=== PATIENT | female | born 1970 ===

== ENCOUNTER 2018-01-06 11:34 | Emergency (ER) | payer OTHER, SELFPAY ==
[2018-01-06 11:34] VITALS: BMI 22.3
[2018-01-06 11:51] VITALS: RESP 18; O2SAT 100
--- NOTE | 2018-01-06 12:04 | C.PDOC ---
History Of Present Illness 47 y/o female presents to the ER complaining of hip pain which has been present for the past 3 days. Patient states that the pain radiates to her left leg. Patient reports that the pain is worse with movement. 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 Patient denies having fever, chills , nausea, vomiting, diarrhea, dysuria, and hematuria. Time Seen by Provider: 01/06/18 11:54 Chief Complaint (Nursing): Back Pain History Per: Patient History/Exam Limitations: no limitations Onset/Duration Of Symptoms: Days Current Symptoms Are (Timing): Still Present Severity: Moderate Past Medical History Reviewed: Historical Data, Nursing Documentation, Vital Signs Vital Signs: Last Vital Signs Temp 97.6 F 01/06/18 11:47 Pulse 72 01/06/18 11:47 Resp 18 01/06/18 11:47 BP 137/82 01/06/18 11:47 Pulse Ox 100 01/06/18 13:29 - Medical History PMH: No Chronic Diseases Surgical History: No Surg Hx Family History: States: No Known Family Hx - Social History Hx Tobacco Use: No Hx Alcohol Use: No Hx Substance Use: No - Immunization History Hx Tetanus Toxoid Vaccination: No Hx Influenza Vaccination: No Hx Pneumococcal Vaccination: No Review Of Systems Except As Marked, All Systems Reviewed And Found Negative. Constitutional: Negative for: Fever, Chills Gastrointestinal: Negative for: Nausea, Vomiting, Diarrhea Genitourinary: Negative for: Dysuria, Hematuria Musculoskeletal: Positive for: Back Pain (lower back pain) Physical Exam - Physical Exam Appears: Non-toxic, No Acute Distress Skin: Normal Color, Warm Head: Atraumatic, Normacephalic Eye(s): bilateral: Normal Inspection Nose: Normal Oral Mucosa: Moist Neck: Supple Chest: Symmetrical Gastrointestinal/Abdominal: Normal Exam, Soft, No Tenderness Extremity: Tenderness (tenderness to the left hip and left posterior thigh) Neurological/Psych: Oriented x3, Normal Speech, Normal Motor, Normal Sensation ED Course And Treatment O2 Sat by Pulse Oximetry: 100 (RA) Pulse Ox Interpretation: Normal Medical Decision Making Medical Decision Making: Plan: --Flexeril PO --Motrin PO --Tylenol PO --Lidoderm Patch Patient is pain free Disposition Counseled Patient/Family Regarding: Diagnosis, Need For Followup, Rx Given - Disposition Referrals: Douglas Gale MD [Staff Provider] - Jose Crowley MD [Non-Staff] - Disposition: HOME/ ROUTINE Disposition Time: 15:21 Condition: STABLE Prescriptions: Cyclobenzaprine [Cyclobenzaprine HCl] 10 mg PO TID #12 tab Ibuprofen [Motrin] 600 mg PO TID #15 tab Instructions: Sciatica Forms: [facility] (Malay), Work Excuse - POA Present On Arrival: None - Clinical Impression Clinical Impression: Sciatica - Scribe Statement The provider has reviewed the documentation as recorded by the Kenneth Garcia Provider Attestation: All medical record entries made by the Sofieibaggie were at my direction and personally dictated by me. I have reviewed the chart and agree that the record accurately reflects my personal performance of the history, physical exam, medical decision making, and the department course for this patient. I have also personally directed, reviewed, and agree with the discharge instructions and disposition.
[2018-01-06] MEDS ORDERED: Lidocaine 5% Patch TD STA (12:05)
[2018-01-06 15:27] VITALS: BP 118/81; PULSE 70; TEMP 97.9
== END 2018-01-06 15:36 | disposition home or self-care (01) ==
LOC: C.ER 11:34
DX: M54.32 Sciatica, left side (principal)

== ENCOUNTER 2018-01-08 08:04 | Emergency (ER) | payer OTHER ==
[2018-01-08 08:22] VITALS: BMI 21.2
[2018-01-08 08:24] VITALS: O2SAT 100
[2018-01-08] MEDS ORDERED: Lidocaine 5% Patch TD STA (08:47)
[2018-01-08] MEDS ORDERED: Oxycodone/Acetaminophen 5/325 mg Tab PO STA (08:47)
[2018-01-08] MEDS ORDERED: Oxycodone/Acetaminophen 5/325 mg Tab ONE (09:01)
[2018-01-08] MEDS ORDERED: Lidocaine 5% Patch TD ONE (09:01)
--- NOTE | 2018-01-08 09:16 | RAD ---
PROCEDURE: Radiographs of the Lumbar Spine. HISTORY: back pain, left sciatica COMPARISON: CT scan of the abdomen and pelvis dated 07/03/2015. FINDINGS: BONES: Normal alignment. No listhesis. No fracture. DISC SPACES: Unremarkable. OTHER FINDINGS: None. IMPRESSION: Unremarkable radiographs of the lumbar spine.
--- NOTE | 2018-01-08 10:56 | C.PDOC ---
History Of Present Illness 47 year old female presents to the emergency department with a complaint of severe lower back pain that radiates to the legs bilaterally (left greater than right) x 1 week. 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 Denies any further medical complaints. Time Seen by Provider: 01/08/18 08:25 Chief Complaint (Nursing): Back Pain History Per: Patient History/Exam Limitations: no limitations Onset/Duration Of Symptoms: Days Past Medical History Reviewed: Historical Data, Nursing Documentation, Vital Signs Vital Signs: Last Vital Signs Temp 98.0 F 01/08/18 11:22 Pulse 72 01/08/18 11:22 Resp 16 01/08/18 11:22 BP 114/77 01/08/18 11:22 Pulse Ox 100 01/08/18 11:44 - Medical History PMH: No Chronic Diseases Family History: States: Unknown Family Hx - Social History Hx Tobacco Use: No Hx Alcohol Use: No Hx Substance Use: No - Immunization History Hx Tetanus Toxoid Vaccination: No Hx Influenza Vaccination: No Hx Pneumococcal Vaccination: No Review Of Systems Except As Marked, All Systems Reviewed And Found Negative. (As per HPI, otherwise negative) Musculoskeletal: Positive for: Back Pain (Lower), Leg Pain (b/l) Physical Exam - Physical Exam Appears: Non-toxic, Toxic, In Acute Distress (Uncomfortable) Skin: Normal Color, Warm, Dry Head: Atraumatic, Normacephalic Tongue: Normal Appearing Lips: Normal Appearing Teeth: Normal Dentition Gingiva: Normal Appearing Cardiovascular: Rhythm Regular, No Murmur Respiratory: Normal Breath Sounds, No Decreased Breath Sounds, No Accessory Muscle Use Gastrointestinal/Abdominal: Normal Exam, Soft, No Tenderness Back: Paraspinal Tenderness (Left region), Other (Left buttock posterior thigh) Extremity: Normal ROM, No Pedal Edema Neurological/Psych: Oriented x3 Gait: Steady ED Course And Treatment O2 Sat by Pulse Oximetry: 100 (RA) Pulse Ox Interpretation: Normal Reassessment Condition: Improved (ambulatory, no neuro deficit) Medical Decision Making Medical Decision Making: Time: 846 --Lidoderm 1 ea TD --Neurontin 300 mg PO --Perocet 5/325 mg PO --Toradol 60 mg IM --Valium 5 mg PO --Reassessment Time: 913 --Lumbar Spine x-ray FINDINGS: BONES: Normal alignment. No listhesis. No fracture. DISC SPACES: Unremarkable. OTHER FINDINGS: None. IMPRESSION: Unremarkable radiographs of the lumbar spine. Disposition - Disposition Referrals: Eliz Hdz MD [Staff Provider] - Disposition: HOME/ ROUTINE Disposition Time: 11:41 Condition: IMPROVED Additional Instructions: Follow up with PMD/Clinic within 1-2 days. Return to ED if feel worse. Prescriptions: Ibuprofen [Motrin Tab] 400 mg PO Q8 #30 tab Gabapentin [Neurontin] 600 mg PO QPM #10 tablet oxyCODONE/Acetaminophen [Percocet 5/325 mg Tab] 1 tab PO QID PRN #20 tab PRN Reason: Pain diaZEpam [Valium] 2 mg PO TID #15 tab Instructions: Sciatica Forms: [facility] (Nepali), Work Excuse - Clinical Impression Clinical Impression: Sciatica
[2018-01-08 11:23] VITALS: BP 114/77; PULSE 72; RESP 16; TEMP 98
== END 2018-01-08 12:00 | disposition home or self-care (01) ==
LOC: C.ER 08:04
DX: M54.30 Sciatica, unspecified side (principal)
CPT/HCPCS: 72100; 96372; 99284; J1885

== ENCOUNTER 2018-02-08 15:56 | Observation (INO) | payer OTHER ==
[2018-02-08 15:57] VITALS: BMI 21.2
--- NOTE | 2018-02-08 16:35 | C.PDOC ---
Time Seen by Provider: 02/08/18 16:29 Chief Complaint (Nursing): Back Pain Past Medical History Vital Signs: Last Vital Signs Temp 98.1 F 02/08/18 16:09 Pulse 76 02/08/18 16:09 Resp 18 02/08/18 16:09 BP 138/89 02/08/18 16:09 Pulse Ox 100 02/08/18 16:09 Family History: States: Unknown Family Hx - Social History Hx Tobacco Use: No Hx Alcohol Use: No Hx Substance Use: No - Immunization History Hx Tetanus Toxoid Vaccination: No Hx Influenza Vaccination: No Hx Pneumococcal Vaccination: No ED Course And Treatment O2 Sat by Pulse Oximetry: 100 Disposition - Disposition
--- NOTE | 2018-02-08 16:37 | C.PDOC ---
History Of Present Illness 47yo female, presents to ED for evaluation of left lower back pain radiating to her left leg, present for the past month. Patient states she was evaluated by her PCP Dr. Elly Hdz 2-3 weeks ago, given Motrin 600mg for pain, which she took with transient relief. Patient states went back yesterday, after which she had a flare up of her pain. She took 1 tablet of tylenol last night with no relief of pain. She denies any injury, perirectal pain, trauma, weakness, numbness, bowel or bladder dysfunction, saddle anesthesia. H/o MRI 2 years ago. Time Seen by Provider: 02/08/18 16:29 Chief Complaint (Nursing): Back Pain History Per: Patient History/Exam Limitations: no limitations Onset/Duration Of Symptoms: Persistent Current Symptoms Are (Timing): Still Present Quality Of Discomfort: "Pain" Associated Symptoms: denies: Incontinence, New Weakness, New Numbness Exacerbating Factor(s): Sitting, Standing Past Medical History Reviewed: Historical Data, Nursing Documentation, Vital Signs Vital Signs: Last Vital Signs Temp 97.8 F 02/09/18 07:48 Pulse 78 02/09/18 07:48 Resp 20 02/09/18 07:48 BP 127/84 02/09/18 07:48 Pulse Ox 100 02/09/18 09:14 Surgical History: No Surg Hx Family History: States: Unknown Family Hx - Social History Hx Tobacco Use: No Hx Alcohol Use: No Hx Substance Use: No - Immunization History Hx Tetanus Toxoid Vaccination: No Hx Influenza Vaccination: No Hx Pneumococcal Vaccination: No Review Of Systems Except As Marked, All Systems Reviewed And Found Negative. Genitourinary: Negative for: Incontinence Musculoskeletal: Positive for: Back Pain Neurological: Negative for: Weakness, Numbness Physical Exam - Physical Exam Appears: Well, Non-toxic, In Acute Distress (in painful distressed) Skin: Normal Color, Warm, Dry Head: Atraumatic, Normacephalic Eye(s): bilateral: EOMI Nose: Normal Oral Mucosa: Moist Neck: Normal ROM, Supple Chest: Symmetrical Cardiovascular: Rhythm Regular Respiratory: Normal Breath Sounds, No Accessory Muscle Use Gastrointestinal/Abdominal: Soft, No Tenderness Back: No CVA Tenderness, No Vertebral Tenderness, Paraspinal Tenderness (left buttock tenderness radiating to left posterior leg), Straight Leg Raising ( unable to assess secondary to pain) Extremity: Normal ROM, Capillary Refill, No Deformity, No Swelling Neurological/Psych: Oriented x3, Normal Motor, Normal Sensation ED Course And Treatment - Laboratory Results Result Diagrams: 02/08/18 18:34 02/08/18 18:34 O2 Sat by Pulse Oximetry: 100 (RA) Pulse Ox Interpretation: Normal Progress Note: Patient given Toradol 30mg IVP and Valium 5mg PO for pain relief. 1815: On re-evaluation, patient reports the pain has improved. Case discussed with Dr. Elly Hdz who agreed upon plan for admission. Reevaluation Time: 18:16 Reassessment Condition: Improved Disposition - Disposition Disposition: HOSPITALIZED Disposition Time: 20:00 Condition: STABLE - Clinical Impression Clinical Impression: Sciatica, Intractable back pain - PA / HEEL STIFFENER / Resident Statement MD/DO has reviewed & agrees with the documentation as recorded. - Scribe Statement The provider has reviewed the documentation as recorded by the Scribe (Deb Silverman) Provider Attestation: All medical record entries made by the Scribe were at my direction and personally dictated by me. I have reviewed the chart and agree that the record accurately reflects my personal performance of the history, physical exam, medical decision making, and the department course for this patient. I have also personally directed, reviewed, and agree with the discharge instructions and disposition.
[2018-02-08 18:38] LABS: BASO % 0.5 % (0.0-2.0); EOS # 0.1 K/uL (0.0-0.7); HEMOGLOBIN 12.2 g/dL (11.0-16.0); LYMPH # 1.8 K/uL (1.0-4.3); LYMPH % 21.6 % (20.0-40.0); MEAN CELL VOLUME 86.9 fL (81.0-99.0); MEAN CORPUSCULAR HEMOGLOBIN 28.7 pg (27.0-31.0); MONO # 0.6 K/uL (0.0-0.8); MONO % 7.7 % (0.0-10.0); NEUT # 5.7 K/uL (1.8-7.0); NEUT % 69.2 % (50.0-75.0); RBC 4.24 Mil/uL (3.80-5.20); RED CELL DISTRIBUTION WIDTH 13.5 % (11.5-14.5); WHITE BLOOD COUNT 8.2 K/uL (4.8-10.8)
[2018-02-08 18:51] LABS: ALB/GLOB RATIO 1.2 (1.0-2.1); ALBUMIN 4.1 g/dL (3.5-5.0); ALT/SGPT 54 U/L (9-52); AST/SGOT 35 U/L (14-36); BLOOD UREA NITROGEN 7 mg/dL (7-17); CALCIUM 8.7 mg/dl (8.6-10.4); GFR AFRICAN-AMERICAN > 60; GFR NON-AFRICAN AMERICAN > 60
[2018-02-08 18:54] LABS: HCG,QUALITATIVE URINE NEGATIVE (NEGATIVE)
[2018-02-08] MEDS: Sodium Chloride 0.9% 1,000 ML IV SCH (19:00)
[2018-02-08 19:01] LABS: SQUAMOUS EPITHIAL 3 /hpf (0-5); URINE BACTERIA RARE (<OCC); URINE BILIRUBIN NEGATIVE (NEGATIVE); URINE BLOOD NEGATIVE (NEGATIVE); URINE CLARITY Clear (Clear); URINE COLOR Colorless (YELLOW); URINE GLUCOSE (UA) NORMAL (Normal); URINE LEUKOCYTE ESTERASE NEG Leu/uL (Negative); URINE PROTEIN NEGATIVE (NEGATIVE); URINE UROBILINOGEN NORMAL mg/dL (0.2-1.0)
--- NOTE | 2018-02-08 21:46 | CP.PCM.HP ---
Past Patient History - Infectious Disease Hx of Infectious Diseases: None - Past Social History Smoking Status: Never Smoked - GASTROINTESTINAL Hx Constipation: Yes Hx Hemorrhoids: Yes - PSYCHIATRIC Hx Substance Use: No - SURGICAL HISTORY Hx Surgeries: No - ANESTHESIA Hx Anesthesia: No Meds Allergies/Adverse Reactions: Allergies Allergy/AdvReac Type Severity Reaction Status Date / Time No Known Allergies Allergy Verified 01/08/18 08:20 Physical Exam - Constitutional Appears: Well - Head Exam Head Exam: ATRAUMATIC, NORMAL INSPECTION, NORMOCEPHALIC - Eye Exam Eye Exam: EOMI, Normal appearance, PERRL Pupil Exam: NORMAL ACCOMODATION, PERRL - ENT Exam ENT Exam: Mucous Membranes Moist, Normal Exam - Neck Exam Neck exam: Positive for: Normal Inspection - Respiratory Exam Respiratory Exam: Decreased Breath Sounds - Cardiovascular Exam Cardiovascular Exam: REGULAR RHYTHM, +S1, +S2 - GI/Abdominal Exam GI & Abdominal Exam: Diminished Bowel Sounds, Soft - Rectal Exam Rectal Exam: Deferred Results - Vital Signs Recent Vital Signs: Last Vital Signs Temp 98.1 F 02/08/18 19:33 Pulse 81 02/08/18 19:33 Resp 18 02/08/18 19:33 BP 122/79 02/08/18 19:33 Pulse Ox 100 02/08/18 19:33 - Labs Result Diagrams: 02/08/18 18:34 02/08/18 18:34 Labs: Laboratory Results - last 24 hr 02/08/18 02/08/18 02/08/18 18:34 18:34 18:42 WBC 8.2 D RBC 4.24 Hgb 12.2 Hct 36.9 MCV 86.9 MCH 28.7 MCHC 33.0 RDW 13.5 Plt Count 237 MPV 9.0 Neut % (Auto) 69.2 Lymph % (Auto) 21.6 [place] % (Auto) 7.7 Eos % (Auto) 1.0 Baso % (Auto) 0.5 Neut # (Auto) 5.7 Lymph # (Auto) 1.8 [place] # (Auto) 0.6 Eos # (Auto) 0.1 Baso # (Auto) 0.0 Sodium 145 Potassium 4.1 Chloride 106 Carbon Dioxide 24 Anion Gap 19 BUN 7 Creatinine 0.7 Est GFR ( Amer) > 60 Est GFR (Non-Af Amer) > 60 Random Glucose 89 Calcium 8.7 Total Bilirubin 0.7 AST 35 ALT 54 H D Alkaline Phosphatase 72 Total Protein 7.5 Albumin 4.1 Globulin 3.4 Albumin/Globulin Ratio 1.2 Urine Color Colorless Urine Clarity Clear Urine pH 6.0 Ur Specific [place] 1.004 Urine Protein Negative Urine Glucose (UA) Normal Urine Ketones Negative Urine Blood Negative Urine Nitrate Negative Urine Bilirubin Negative Urine Urobilinogen Normal Ur Leukocyte Esterase Neg Urine WBC (Auto) 1 Urine RBC (Auto) 1 Ur Squamous Epith Cells 3 Urine Bacteria Rare Urine HCG, Qual Negative
[2018-02-08 22:41] VITALS: RESP 20
[2018-02-09] MEDS: Sodium Chloride 0.9% 1,000 ML IV SCH ×3 (04:19→17:21)
--- NOTE | 2018-02-09 07:18 | CP.PCM.CON ---
History of Present Illness - History of Present Illness History of Present Illness: CONSULT DICTATED LEFT L/S RADICULOPATHY EXAM SLR 30 DEG NON FOCAL EXAM CHECM MRI/BLOOD WORK UP NSAID AND MUS RELAX. IF MRI NEG DC HOME AND FOLLOW UP AN OP THANKS Past Patient History - Infectious Disease Hx of Infectious Diseases: None - Past Social History Smoking Status: Never Smoked - GASTROINTESTINAL Hx Constipation: Yes Hx Hemorrhoids: Yes - PSYCHIATRIC Hx Substance Use: No - SURGICAL HISTORY Hx Surgeries: No - ANESTHESIA Hx Anesthesia: No Meds Allergies/Adverse Reactions: Allergies Allergy/AdvReac Type Severity Reaction Status Date / Time No Known Allergies Allergy Verified 01/08/18 08:20 - Medications Medications: Current Medications Cyclobenzaprine HCl (Flexeril) 5 mg PO TID [facility] Enoxaparin Sodium (Lovenox) 40 mg SC DAILY [facility] Sodium Chloride (Sodium Chloride 0.9%) 1,000 mls @ 100 mls/hr IV .Q10H [facility] Last Admin: 02/09/18 05:30 Dose: 100 mls/hr Ketorolac Tromethamine (Toradol) 30 mg IVP Q6 [facility] Last Admin: 02/09/18 05:29 Dose: 30 mg Pantoprazole Sodium (Protonix Ec Tab) 40 mg PO DAILY [facility] Results - Vital Signs Recent Vital Signs: Last Vital Signs Temp 97.9 F 02/09/18 00:00 Pulse 76 02/09/18 00:00 Resp 20 02/09/18 00:00 BP 130/83 02/09/18 00:00 Pulse Ox 99 02/09/18 00:00 - Labs Result Diagrams: 02/08/18 18:34 02/08/18 18:34 Labs: Laboratory Results - last 24 hr 02/08/18 02/08/18 02/08/18 18:34 18:34 18:42 WBC 8.2 D RBC 4.24 Hgb 12.2 Hct 36.9 MCV 86.9 MCH 28.7 MCHC 33.0 RDW 13.5 Plt Count 237 MPV 9.0 Neut % (Auto) 69.2 Lymph % (Auto) 21.6 [place] % (Auto) 7.7 Eos % (Auto) 1.0 Baso % (Auto) 0.5 Neut # (Auto) 5.7 Lymph # (Auto) 1.8 [place] # (Auto) 0.6 Eos # (Auto) 0.1 Baso # (Auto) 0.0 Sodium 145 Potassium 4.1 Chloride 106 Carbon Dioxide 24 Anion Gap 19 BUN 7 Creatinine 0.7 Est GFR ( Amer) > 60 Est GFR (Non-Af Amer) > 60 Random Glucose 89 Calcium 8.7 Total Bilirubin 0.7 AST 35 ALT 54 H D Alkaline Phosphatase 72 Total Protein 7.5 Albumin 4.1 Globulin 3.4 Albumin/Globulin Ratio 1.2 Urine Color Colorless Urine Clarity Clear Urine pH 6.0 Ur Specific [place] 1.004 Urine Protein Negative Urine Glucose (UA) Normal Urine Ketones Negative Urine Blood Negative Urine Nitrate Negative Urine Bilirubin Negative Urine Urobilinogen Normal Ur Leukocyte Esterase Neg Urine WBC (Auto) 1 Urine RBC (Auto) 1 Ur Squamous Epith Cells 3 Urine Bacteria Rare Urine HCG, Qual Negative
[2018-02-09 07:51] VITALS: O2SAT 100
[2018-02-09 08:19] LABS: FREE T4 1.19 ng/dL (0.78-2.19)
--- NOTE | 2018-02-09 09:38 | CP.PCM.PN ---
Subjective - Date & Time of Evaluation Date of Evaluation: 02/09/18 Time of Evaluation: 08:40 - Subjective Subjective: clinically same Objective - Vital Signs/Intake and Output Vital Signs (last 24 hours): Temp Pulse Resp BP Pulse Ox 97.8 F 78 20 127/84 100 02/09/18 07:48 02/09/18 07:48 02/09/18 07:48 02/09/18 07:48 02/09/18 09:14 Intake and Output: 02/09/18 02/09/18 06:59 18:59 Intake Total 200 Balance 200 - Medications Medications: Current Medications Cyclobenzaprine HCl (Flexeril) 5 mg PO TID [facility] Enoxaparin Sodium (Lovenox) 40 mg SC DAILY [facility] Sodium Chloride (Sodium Chloride 0.9%) 1,000 mls @ 100 mls/hr IV .Q10H [facility] Last Admin: 02/09/18 05:30 Dose: 100 mls/hr Ketorolac Tromethamine (Toradol) 30 mg IVP Q6 [facility] Last Admin: 02/09/18 05:29 Dose: 30 mg Pantoprazole Sodium (Protonix Ec Tab) 40 mg PO DAILY [facility] - Labs Labs: 02/08/18 18:34 02/08/18 18:34 - Constitutional Appears: Well - Head Exam Head Exam: ATRAUMATIC, NORMAL INSPECTION, NORMOCEPHALIC - Eye Exam Eye Exam: EOMI, Normal appearance, PERRL Pupil Exam: NORMAL ACCOMODATION, PERRL - ENT Exam ENT Exam: Mucous Membranes Moist, Normal Exam - Neck Exam Neck Exam: Full ROM, Normal Inspection. absent: Lymphadenopathy - Respiratory Exam Respiratory Exam: Decreased Breath Sounds - Cardiovascular Exam Cardiovascular Exam: REGULAR RHYTHM, +S2 - GI/Abdominal Exam GI & Abdominal Exam: Soft, Diminished Bowel Sounds - Rectal Exam Rectal Exam: Deferred
[2018-02-09] MEDS ORDERED: Pantoprazole 40 mg EC Tab PO SCH (10:00)
[2018-02-09] MEDS ORDERED: Enoxaparin 40 mg Syringe SC SCH (10:00)
--- NOTE | 2018-02-09 10:04 | MRI ---
MRI lumbar spine History: Herniated disc. Back pain. Comparison: None available. Technique: Multi-echo multiplanar sequences were performed through the lumbar spine without the use of intravenous contrast. Findings: Spinal alignment is maintained. Vertebral body heights are preserved. Focal disc desiccation at the L2-3 and L5-S1 levels. Schmorl's node formation at the inferior endplates of the L2 and L5 vertebral bodies. Annular tears at the L2-3 and L5-S1 levels. Conus medullaris ends at approximately the T12 vertebral body level. Heterogeneity of the visualized marrow with patchy decreased T1 signal suggestive for hematopoietic marrow reconversion. T11-12: No significant disc herniation, spinal canal stenosis, or neural foraminal narrowing. T12-L1: No significant disc herniation, spinal canal stenosis, or neural foraminal narrowing. L1-2: No significant disc herniation, spinal canal stenosis, or neural foraminal narrowing. L2-3: Small annular tear. Minimal broad-based posterior disc bulge contacting the anterior thecal sac. Moderate ligamentum flavum and facet hypertrophy. No significant spinal canal stenosis. No significant neural foraminal narrowing. L3-4: No significant disc herniation. Mild ligamentum flavum and facet hypertrophy. No significant spinal canal stenosis. No significant neural foraminal narrowing. L4-5: No significant disc herniation. Mild ligamentum flavum and facet hypertrophy. No significant spinal canal stenosis. No significant neural foraminal narrowing. L5-S1: Annular tear. At the posterior superior aspect of the S1 vertebral body, there is a large ovoid low signal density measuring 1.4 x 1.0 x 1.0 centimeters, best seen on series 8, image 21 and series 6, image 7 seen within the anterior thecal sac abutting and contacting the anterior thecal nerve roots. This appears to be contiguous with the posterior aspect of the L5-S1 disc, where there appears to be a moderate focal right paracentral disc protrusion. This may represent a large focal disc extrusion/sequestration with resultant severe spinal canal stenosis. Moderate bilateral neural foraminal narrowing. Further evaluation with contrast-enhanced MRI would be helpful to exclude underlying spinal lesion at this level. Impression: 1. At the L5-S1 level, there is an annular tear. At the posterior superior aspect of the S1 vertebral body, there is a large ovoid low signal density measuring 1.4 x 1.0 x 1.0 centimeters, best seen on series 8, image 21 and series 6, image 7 seen within the anterior thecal sac abutting and contacting the anterior thecal nerve roots. This appears to be contiguous with the posterior aspect of the L5-S1 disc, where there appears to be a moderate focal right paracentral disc protrusion. This may represent a large focal disc extrusion/sequestration with resultant severe spinal canal stenosis. Additional etiologies not excluded. Moderate bilateral neural foraminal narrowing. Further evaluation with contrast-enhanced MRI would be helpful to exclude underlying spinal lesion at this level. 2. Additional findings as described above.
[2018-02-09 16:21] VITALS: BP 132/83; PULSE 94; TEMP 98.1
--- NOTE | 2018-02-09 16:34 | CP.PCM.PN ---
Subjective - Date & Time of Evaluation Date of Evaluation: 02/09/18 Time of Evaluation: 11:40 - Subjective Subjective: Patient seen and examined at bedside. No acute events reported overnight. Patient complains of back pain with movement but is managed with pain medication. Patient denies fever, chills, headache, shortness of breath, chest pain, numbness, tingling, urinary or fecal incontinence. She further denies having trauma in the region of back pain. Objective - Vital Signs/Intake and Output Vital Signs (last 24 hours): Temp Pulse Resp BP Pulse Ox 98.1 F 94 H 20 132/83 100 02/09/18 15:00 02/09/18 15:00 02/09/18 15:00 02/09/18 15:00 02/09/18 15:00 Intake and Output: 02/09/18 02/09/18 06:59 18:59 Intake Total 200 Balance 200 - Medications Medications: Current Medications Cyclobenzaprine HCl (Flexeril) 5 mg PO TID [facility] Last Admin: 02/09/18 10:43 Dose: 5 mg Enoxaparin Sodium (Lovenox) 40 mg SC DAILY [facility] Last Admin: 02/09/18 10:43 Dose: Not Given Sodium Chloride (Sodium Chloride 0.9%) 1,000 mls @ 100 mls/hr IV .Q10H [facility] Last Admin: 02/09/18 05:30 Dose: 100 mls/hr Ketorolac Tromethamine (Toradol) 30 mg IVP Q6 [facility] Last Admin: 02/09/18 05:29 Dose: 30 mg Pantoprazole Sodium (Protonix Ec Tab) 40 mg PO DAILY [facility] Last Admin: 02/09/18 10:43 Dose: 40 mg - Labs Labs: 02/08/18 18:34 02/08/18 18:34 - Constitutional Appears: Non-toxic, No Acute Distress - Head Exam Head Exam: ATRAUMATIC, NORMOCEPHALIC - Eye Exam Eye Exam: EOMI, PERRL - ENT Exam ENT Exam: Mucous Membranes Moist - Neck Exam Neck Exam: Normal Inspection - Respiratory Exam Respiratory Exam: Clear to Ausculation Bilateral, NORMAL BREATHING PATTERN. absent: Respiratory Distress - Cardiovascular Exam Cardiovascular Exam: REGULAR RHYTHM, +S1, +S2 - GI/Abdominal Exam GI & Abdominal Exam: Soft, Normal Bowel Sounds. absent: Tenderness - Extremities Exam Extremities Exam: absent: Joint Swelling - Back Exam Back Exam: paraspinal tenderness. absent: CVA tenderness (L), CVA tenderness (R ) Additional comments: unable to fully raise legs due to pain - Neurological Exam Neurological Exam: Alert, Awake, Oriented x3. absent: Motor Sensory Deficit - Psychiatric Exam Psychiatric exam: Normal Affect, Normal Mood - Skin Skin Exam: Normal Color, Warm Assessment and Plan - Assessment and Plan (Free Text) Assessment: Lumbar Radiculopathy -Back pain improving -Neurology consulted, Dr. Hawkins help appreciated -Lumbar MRI shows annular tear at L5-S, moderate focal right paracentral disc protrusion (see report) -Neurology recommends muscle relaxant and NSAID -Outpatient follow up Patient is medically stable to be discharged Discussed with attending Dr. Hdz, all management per Dr. Hdz
--- NOTE | 2018-02-09 17:48 | CON ---
DATE: ATTENDING PHYSICIAN: Anthony Hdz MD The patient is in room number 352, bed 1. REASON FOR CONSULTATION: Intractable back pain. CHIEF COMPLAINT: The patient was brought into [facility] as per the advice of her primary care physician with a history of recurrent as well as worsening in her lower back pain. From neurological point of view, I was called in to evaluate her for further management. HISTORY OF PRESENT ILLNESS: Ms. Annalisa Hdz is a 47-year-old right-handed vegetarian [place] Serbian-speaking female presenting with one month history of progressive lower back pain. No history of fall. No history of trauma. Her work is mostly standing and bending and moving. No history of recent travel. No history of recent flu or vaccination. Her pain is at times it goes to 9/10 at times. However, at present the pain is much better during rest and the pain is 5/10. Not associating with the numbness or tingling sensation. No history of bowel or bladder incontinence. PAST MEDICAL HISTORY: Unremarkable. PERSONAL HISTORY: Denies smoking or alcohol use. REVIEW OF SYSTEMS: The 12-point system is being reviewed from neuro, now intractable lower back pain. MEDICATIONS: Lovenox, Flexeril, and ketorolac. PHYSICAL EXAMINATION: VITAL SIGNS: Blood pressure 130/83, mean artery pressure 90, respiratory rate 16, temperature afebrile. NECK: Supple. No carotid bruits. HEART: Heart sounds regular. CHEST: Fair air entry. EXTREMITIES: No edema in legs. NEUROLOGIC: Mental status examination: She is awake, alert, and oriented to person, place, and time. Speech is clear. Naming, repetition, fluency, comprehension all within normal. Cranial nerve examination, visual field intact. Pupils reactive to light. Extraocular movement normal. No nystagmus. No facial sensory deficit. No facial asymmetry. Hearing is normal. Tongue is midline. Good gag. Motor examination: Outstretched hand with eyes closed, no drift noted. Legs are not externally rotated. Straight leg raising test shows painful 30-degree radicular pattern on her left side. Hip flexion and are not painful. Deep tendon reflexes biceps, brachialis, triceps 2+ on either side. Both knees are 3+, both ankles are 2+. Plantars are downgoing. Sensory examination: No evidence of dermatomal sensory loss. Both small fiber and large fiber functions are normal. Coordination: [id number] test is intact. Gait is antalgic gait. WORKUP: WBC 8.3, hemoglobin 12.2, hematocrit 36.9, platelets 237. Sodium 145, potassium 4.1, chloride 106, bicarbonate 24, BUN 7, GFR more than 60, ALT 54. hCG is negative. CONCLUSION: As per neurological examination, she is presenting with possible sciatica on her left side. From neurological examination, besides the straight leg raising test and the subjective pain, no other long tract signs are observable. RECOMMENDATIONS: 1. MRI of the lumbosacral spine to rule out herniated disk pulposus. 2. Blood workup for vasculitis. 3. Continue NSAID with Flexeril and rest with hydration. If the patient's MRI is negative, the patient can be discharged and can be followed as outpatient for her existing neurological symptoms. Jermaine Hawkins MD
[2018-02-10 15:58] LABS: 23 KD (IGG) BAND Nonreactive
== END 2018-02-09 17:15 | disposition home or self-care (01) ==
LOC: C.ER 15:56 → C.9E 18:13 → C.3T 21:08
PROVIDERS: ADMIT Internal Medicine Nephrology; ATTEND Internal Medicine Nephrology
DX: M51.16 Intervertebral disc disorders with radiculopathy, lumbar region (principal); M54.32 Sciatica, left side
CPT/HCPCS: 36415; 72148; 80053; 81001; 82164; 82607; 83036; 84439; 84443; 84703; 85025; 85651; 86140; 86334; 86592; 86617; 86618; 96374; 99284; G0378; J1885; J7040